=== PATIENT | female | born 2000 | race Caucasian/White ===

== ENCOUNTER 2021-02-05 07:00 | Emergency (ER) | payer OTHER, SELFPAY ==
[2021-02-05 07:01] VITALS: BP 121/83; PULSE 101; RESP 18; TEMP 37; O2SAT 99; BMI 24.2
[2021-02-05 07:11] VITALS: BP 121/83; PULSE 86; RESP 18; O2SAT 97
[2021-02-05 07:32] VITALS: BP 103/68; PULSE 84; RESP 20; O2SAT 98
--- NOTE | 2021-02-05 07:33 | CT_ITS ---
PROCEDURE INFORMATION: Exam: CT Abdomen And Pelvis Without Contrast Exam date and time: 02/05/2021 7:33 AM Age: 20 years old Clinical indication: Abdominal pain; Localized; Right lower quadrant (rlq); Patient HX: Rlq pain x4-5 days; Additional info: Right lower quadrant pain TECHNIQUE: Imaging protocol: Computed tomography of the abdomen and pelvis without contrast. Radiation optimization: All CT scans at this facility use at least one of these dose optimization techniques: automated exposure control; mA and/or kV adjustment per patient size (includes targeted exams where dose is matched to clinical indication); or iterative reconstruction. COMPARISON: No relevant prior studies available. FINDINGS: Liver: Normal. No mass. Gallbladder and bile ducts: Normal. No calcified stones. No ductal dilation. Pancreas: Normal. No ductal dilation. Spleen: Normal. No splenomegaly. Adrenal glands: Normal. No mass. Kidneys and ureters: Normal. No hydronephrosis. Stomach and bowel: Unremarkable. No obstruction. No mucosal thickening. Appendix: No evidence of appendicitis. Intraperitoneal space: Mild pelvic fluid. No free air. Vasculature: Unremarkable. No abdominal aortic aneurysm. Lymph nodes: Unremarkable. No enlarged lymph nodes. Urinary bladder: Unremarkable as visualized. Reproductive: Unremarkable as visualized. Bones/joints: Unremarkable. No acute fracture. Soft tissues: Unremarkable. IMPRESSION: Small amount of nonspecific pelvic fluid perhaps related to recent cyst leakage or rupture. Clinical and sonographic correlation may be useful.
[2021-02-05 07:39] LABS: Basophils % 0.4 % (0.1-2.0); Eosinophils # 0.2 K/mm3 (0.0-0.4); Eosinophils % 1.9 % (0.1-12.0); Hematocrit 36.4 % (37.0-47.0); Hemoglobin 12.4 g/dL (12.2-16.2); Lymphocytes # 2.2 K/mm3 (0.7-4.5); Lymphocytes % 27.2 % (10-50); Mean Corpuscular HGB Conc 34.2 g/dL (31.8-35.4); Mean Corpuscular Volume 87.8 fl (81-99); Mean Platelet Volume 7.3 fl (7.4-10.4); Monocytes # 0.7 K/mm3 (0.1-1.0); Monocytes % 8.4 % (1.7-9.3); Platelet Count 294 K/mm3 (142-424); Red Blood Count 4.14 M/mm3 (4.20-5.40); Red Cell Distribution Width 12.8 % (11.5-17.5); White Blood Count 8.1 K/mm3 (4.5-13.0)
[2021-02-05 07:48] LABS: Blood Urea Nitrogen 14 mg/dl (7-17); Carbon Dioxide 25 mmol/L (22.0-30.0); Chloride 107 mmol/L (98-107); Creatinine Clearance Estimated 111 mL/min (50-200); Estimated Glomerular Filt Rate 108 ml/min (>60); GFR (African American) 130 ML/MIN (>60); HCG Qualitative, Serum Negative (Negative)
[2021-02-05 07:50] LABS: Alanine Aminotransferase 12 U/L (12-78); Albumin Level 4.2 g/dl (3.5-5.0); Albumin/Globulin Ratio 1.6 (1.1-1.8); Alkaline Phosphatase 67 U/L (38-126); Anion Gap 9.7 mEq/L (5-15); Aspartate Amino Transferase 24 U/L (14-36); Bilirubin,Total 0.5 mg/dl (0.2-1.3); Calcium 8.9 mg/dl (8.4-10.2); Globulin 2.6 g/dL (1.3-3.2); Glucose 99 mg/dl (74-100); Potassium 3.7 mmoL/L (3.5-5.1); Sodium 138 mmol/L (136-145); Total Protein,Serum 6.8 g/dl (6.3-8.2)
--- NOTE | 2021-02-05 07:54 | PC.NURSE ---
PATIENT REFUSED AND NAUSEA OR PAIN MEDICINE AT THIS TIME
--- NOTE | 2021-02-05 07:59 | PC.NURSE ---
pt to CT
[2021-02-05 08:17] LABS: C-Reactive Protein 1.2 mg/L (0-4)
[2021-02-05 08:30] VITALS: BP 96/57; PULSE 80; O2SAT 97
[2021-02-05 08:42] VITALS: BP 101/57; PULSE 73; RESP 17; O2SAT 99
--- NOTE | 2021-02-05 09:00 | [facility].EDABDPAI ---
ED Disposition Clinical Impression: Ovarian cyst Qualifiers: Laterality: right Qualified Code(s): N83.201 - Unspecified ovarian cyst, right side Disposition: Home, Self-Care Condition on Discharge: Good Instructions: DI for Acute Abdominal Pain Additional Instructions: We are glad to let you know that we have checked your labs and these are within normal limits; you do have pelvic fluid most likely due to an ovarian cyst; anti-inflammatory medication such as ibuprofen can be taken for the same Referrals: Provider,Referral, MD [Primary Care Provider] - Time of Disposition: 09:07 - Critical Care Critical Care Time: No Attestation: On 02/05/21, the high probability of a clinically significant, sudden or life threatening deterioration of the following system(s) required my full and direct attention, intervention and personal management. The time I documented below is in addition to time spent performing reported procedures but includes the following listed in this critical care notation. Medical Decision Making - Medical Records Medical records reviewed: Yes: I reviewed the patient's medical records. MR Comment: 20-year-old female here with a complaint that she has right lower quadrant/pelvic area pain it has been going on for a few days she had a.'s about 3 weeks ago she has no other significant medical problems. I have reviewed patient's labs and CBC and CMP are within normal limits test is negative vital signs are stable CT of the abdomen and pelvis shows small amount of nonspecific pelvic fluid perhaps related to recent cyst leakage or rupture clinical and sonographic correlation may be useful . Findings have been informed to the patient and significant other and I did offer Toradol for pain but she says she is fine without any particular medications she just wanted to know what is going on - Jerry Inquiry Pt receiving controlled substance: No Jerry was queried for this patient: No Vital Signs: 02/05/21 07:01 02/05/21 07:11 02/05/21 07:32 Temperature 98.6 F Temperature Source Oral Pulse Rate 86 84 Pulse Rate [Right] 101 H Respiratory Rate 18 18 20 Blood Pressure 121/83 103/68 L Blood Pressure [Right Arm] 121/83 Blood Pressure Mean 89 80 Blood Pressure Mean [Right Arm] 95 02 Sat by Pulse Oximetry 99 97 98 02/05/21 08:30 02/05/21 08:42 Temperature Temperature Source Pulse Rate 80 73 Pulse Rate [Right] Respiratory Rate 17 Blood Pressure 96/57 L 101/57 L Blood Pressure [Right Arm] Blood Pressure Mean 70 Blood Pressure Mean [Right Arm] 02 Sat by Pulse Oximetry 97 99 - Lab Data Lab results reviewed: Yes: I reviewed the patient's lab results. Lab Results 02/05/21 07:30: WBC 8.1, RBC 4.14 L, Hgb 12.4, Hct 36.4 L, MCV 87.8, MCH 30.0, MCHC 34.2, RDW 12.8, Plt Count 294, MPV 7.3 L, Neut % (Auto) 62.0, Lymph % (Auto) 27.2, [place] % (Auto) 8.4, Eos % (Auto) 1.9, Baso % (Auto) 0.4, Neut # (Auto) 5.0, Lymph # (Auto) 2.2, [place] # (Auto) 0.7, Eos # (Auto) 0.2, Baso # (Auto) 0.0 02/05/21 07:30: Sodium 138, Potassium 3.7, Chloride 107, Carbon Dioxide 25, Anion Gap 9.7, BUN 14, Creatinine 0.70, Estimated Creat Clear 111, Estimated GFR 108, Est GFR ( Amer) 130, Glucose 99, Calcium 8.9, Total Bilirubin 0.5, AST 24, ALT 12, Alkaline Phosphatase 67, C-Reactive Protein 1.2, Total Protein 6.8, Albumin 4.2, Globulin 2.6, Albumin/Globulin Ratio 1.6 02/05/21 07:30: Serum HCG, Qual Negative Result diagrams: 02/05/21 07:30 02/05/21 07:30 Orders (Tests/Meds): ORDERS Category Date Time Status Urinalysis and Microscopic Stat Lab 02/05/21 07:33 Ordered Abdominal Pain HPI - General Chief Complaint: Abdominal Pain Stated Complaint: rt side pain Time Seen by Provider: 02/05/21 08:50 Mode of Arrival: Ambulatory Source of Information: Patient, Significant Other Limitations: No Limitations Description of Symptoms (Recalled from ER Triage Doc. by RN): PATIENT C/O
[2021-02-05 09:15] VITALS: BP 100/60; PULSE 76; RESP 18; TEMP 37; O2SAT 98
== END 2021-02-05 09:15 | disposition home or self-care (01) ==
PROVIDERS: Emergency Provider Emergency Medicine
DX: N83.201 Unspecified ovarian cyst, right side (principal)
CPT/HCPCS: 74176; 80053; 84703; 85025; 86140; 99282

== ENCOUNTER → 2021-04-30 17:44 | Outpatient (CLI) | payer OTHER, SELFPAY ==
[2021-04-30 18:28] LABS: Basophils # 0.1 K/mm3 (0-0.2); Basophils % 1.3 % (0.1-2.0); Eosinophils % 0.3 % (0.1-12.0); Hematocrit 38.4 % (37.0-47.0); Hemoglobin 12.7 g/dL (12.2-16.2); Lymphocytes # 5.7 K/mm3 (0.7-4.5); Lymphocytes % 53.5 % (10-50); Mean Corpuscular Hemoglobin 29.1 pg (27.0-31.2); Mean Platelet Volume 7.3 fl (7.4-10.4); Monocytes # 0.6 K/mm3 (0.1-1.0); Neutrophils # 4.2 K/mm3 (1.8-7.8); Neutrophils % 38.9 % (37.0-80.0); Platelet Count 240 K/mm3 (142-424); Red Blood Count 4.36 M/mm3 (4.20-5.40); White Blood Count 10.7 K/mm3 (4.5-13.0)
[2021-04-30 18:39] LABS: MANUAL DIFFERENTIAL MANUAL DIFFERENTIAL (MANUAL DIFF)
[2021-04-30 18:42] LABS: Monoscreen (Rapid) Positive (Negative)
[2021-04-30 20:47] LABS: Alanine Aminotransferase 509 U/L (12-78); Albumin Level 4.1 g/dl (3.5-5.0); Albumin/Globulin Ratio 1.2 (1.1-1.8); Alkaline Phosphatase 162 U/L (38-126); Anion Gap 14.1 mEq/L (5-15); Aspartate Amino Transferase 199 U/L (14-36); Bilirubin,Total 0.6 mg/dl (0.2-1.3); Blood Urea Nitrogen 14 mg/dl (7-17); Calcium 8.8 mg/dl (8.4-10.2); Carbon Dioxide 26 mmol/L (22.0-30.0); Chloride 102 mmol/L (98-107); Estimated Glomerular Filt Rate 81 ml/min (>60); GFR (African American) 98 ML/MIN (>60); Globulin 3.4 g/dL (1.3-3.2); Glucose 90 mg/dl (74-100); Potassium 4.1 mmoL/L (3.5-5.1); Sodium 138 mmol/L (136-145); Total Protein,Serum 7.5 g/dl (6.3-8.2)
[2021-04-30 21:08] LABS: Lymphocytes % 52 % (10-50); Monocytes % 10 % (2-9); Neutrophils % 37 % (42-76); Total Cells Counted 100
[2021-04-30 21:09] LABS: Platelet Estimate Normal
[2021-05-02 19:48] LABS: EBV Ab VCA, IgG 73.9 U/mL (0.0-17.9); EBV Ab VCA, IgM >160.0 U/mL (0.0-35.9); EBV Nuclear Antigen Ab, IgG <18.0 U/mL (0.0-17.9)
== END ==
PROVIDERS: Visit Provider Nurse Practitioner Family
DX: J02.9 Acute pharyngitis, unspecified (principal)
CPT/HCPCS: 36415; 80053; 85007; 85025; 86318; 86664; 86665; 87070

== ENCOUNTER → 2021-05-24 14:47 | Outpatient (CLI) | payer OTHER, SELFPAY ==
[2021-05-24 15:32] LABS: Basophils % 0.5 % (0.1-2.0); Eosinophils # 0.1 K/mm3 (0.0-0.4); Eosinophils % 0.8 % (0.1-12.0); Hematocrit 38.1 % (37.0-47.0); Hemoglobin 13.1 g/dL (12.2-16.2); Lymphocytes % 31.4 % (10-50); Mean Corpuscular HGB Conc 34.2 g/dL (31.8-35.4); Mean Corpuscular Hemoglobin 29.1 pg (27.0-31.2); Mean Corpuscular Volume 85.1 fl (81-99); Mean Platelet Volume 7.7 fl (7.4-10.4); Monocytes # 0.4 K/mm3 (0.1-1.0); Monocytes % 6.3 % (1.7-9.3); Platelet Count 256 K/mm3 (142-424); Red Blood Count 4.48 M/mm3 (4.20-5.40); Red Cell Distribution Width 13.1 % (11.5-17.5); White Blood Count 6.5 K/mm3 (4.5-13.0)
[2021-05-24 16:12] LABS: Chloride 105 mmol/L (98-107); Sodium 141 mmol/L (136-145)
[2021-05-24 16:14] LABS: Blood Urea Nitrogen 13 mg/dl (7-17); Estimated Glomerular Filt Rate 129 ml/min (>60); GFR (African American) 156 ML/MIN (>60)
[2021-05-24 16:15] LABS: Alanine Aminotransferase 29 U/L (12-78); Albumin Level 4.3 g/dl (3.5-5.0); Albumin/Globulin Ratio 1.5 (1.1-1.8); Alkaline Phosphatase 100 U/L (38-126); Aspartate Amino Transferase 34 U/L (14-36); Bilirubin,Total 0.6 mg/dl (0.2-1.3); Carbon Dioxide 26 mmol/L (22.0-30.0); Globulin 2.9 g/dL (1.3-3.2); Glucose 70 mg/dl (74-100); Total Protein,Serum 7.2 g/dl (6.3-8.2)
== END ==
PROVIDERS: Visit Provider Nurse Practitioner Family
DX: B27.90 Infectious mononucleosis, unspecified without complication (principal)
CPT/HCPCS: 36415; 80053; 85025

== ENCOUNTER 2022-12-25 22:49 | Emergency (ER) | payer BC, SELFPAY ==
[2022-12-25 23:00] VITALS: BP 120/69; PULSE 108; RESP 18; TEMP 36.9; O2SAT 99; BMI 24.2
--- NOTE | 2022-12-25 23:15 | [facility].EDGENADL ---
Discharge Plan Disposition Patient Disposition: Home, Self-Care Condition: Good Prescriptions Prescriptions: New sulfamethoxazole-trimethoprim [Bactrim DS] 800-160 mg tablet 1 tab PO BID 7 Days Qty: 14 0RF cephalexin 500 mg capsule 500 mg PO QID 7 Days Qty: 28 0RF Referrals Follow up/Referrals: Fransisco Chu MD [Primary Care Provider] - See instructions Clinical Impressions Clinical Impression: Abscess Instructions Patient Instructions: DI for Skin Abscess Print Language Print Language: Indonesian Discharge ED Provider: Star Sanders General Adult HPI General Chief complaint: Skin/Abscess/Foreign Body Stated complaint: red knot on LT leg Time Seen by Provider: 12/25/22 23:33 Mode of Arrival: Ambulatory Source of Information: Patient Limitations: No Limitations Description of Symptoms (Recalled from ER Triage Doc. by RN): Pt arrives to ED with c/o of a bump on her left thigh area that started approx 1 week ago. Redness and swelling noted to area. History of Present Illness HPI narrative: Patient presents to the emergency department with an abscess on her left buttock extending down her posterior thigh. She states has been there for approximately 3 days and getting worse. She is attempting to use topical antibiotics but that this is getting worse. Denies any fever, chills, body aches. Denies any previous history of recurrent symptoms Related Data Previous Rx's Medication Instructions Recorded cephalexin 500 mg capsule 500 mg PO QID 7 days #28 caps 12/25/22 sulfamethoxazole 800 1 tab PO BID 7 days #14 tabs 12/25/22 mg-trimethoprim 160 mg tablet (Bactrim DS) Allergies Allergy/AdvReac Type Severity Reaction Status Date / Time No Known Allergies Allergy Verified 04/17/21 16:47 [facility] [place] Disclaimer: The information contained in this section may have been updated after the patient was seen, as this information can be updated by other users. Social History Smoking Status: Never smoker alcohol intake: never substance use type: denies use current occupational status: student Travel in the last 8 weeks: None household members: family housing: house ROS Obtained: Yes All systems reviewed & no additional complaints except as documented Integumentary/Breasts Skin/Breast: Reports other (Skin abscess) Physical Exam General General appearance: alert and in no apparent distress Head Head exam: atraumatic and normocephalic Eye Eye exam: Present normal appearance, PERRL and EOMI Respiratory Respiratory exam: Present normal lung sounds bilaterally and respiratory distress Cardiovascular Cardiovascular exam: Present regular rate, normal rhythm and normal heart sounds Abdominal Exam Abdominal exam: Present soft and normal bowel sounds Neurological Exam Neurological exam: Present alert and oriented X3 Psychiatric Psychiatric exam: Present normal affect and normal mood Skin Skin exam: Present other (3 cm abscess on the left lower buttock extending onto the left posterior medial thigh. Moderate surrounding erythema. Significant tenderness to touch) Medical Decision Making Medical Records Medical records reviewed: Yes I reviewed the patient's medical records. Jerry Inquiry Pt receiving controlled substance: No Jerry was queried for this patient: No Vital Signs: 12/25/22 23:00 Temperature 98.4 F Temperature Source Oral Pulse Rate [Left] 108 H Respiratory Rate 18 Blood Pressure [Right Arm] 120/69 Blood Pressure Mean [Right Arm] 86 02 Sat by Pulse Oximetry 99 Oxygen Delivery Method Room Air Orders (Tests/Meds): ED MEDICATIONS Generic Name Dose Route Start Last Admin Trade Name Marshalq PRN Reason Stop Dose Admin Cephalexin HCl 500 mg 12/25/22 23:11 Cephalexin 500mg Capsule PO 12/25/22 23:12 ONCE ONE Lidocaine HCl 10 ml 12/25/22 23:11 Lidocaine 1% 10ml Mdv IJ 12/25/22 23:12
[2022-12-25 23:36] VITALS: BP 120/69; PULSE 98; RESP 16; TEMP 36.6; O2SAT 99
== END 2022-12-25 23:39 | disposition home or self-care (01) ==
PROVIDERS: Emergency Provider Emergency Medicine; PCP Internal Medicine Adolescent Medicine
DX: L02.31 Cutaneous abscess of buttock (principal)
CPT/HCPCS: 10060; 99283; 99284